=== PATIENT | female | born 1950 | race Hispanic/Latino ===

== ENCOUNTER 2019-05-06 15:58 | Emergency (ER) | payer MEDICARE, SELFPAY ==
[2019-05-06] MEDS ORDERED: HYDROCODONE/ACETAMINOPHEN 10/325 MG TAB ONE (16:23)
[2019-05-06 16:27] LABS: BASOPHILS % (AUTO) 0.4 % (0.0-5.0); EOSINOPHILS % (AUTO) 1.6 % (0.0-8.0); HEMATOCRIT 36.1 % (36-48); LYMPHOCYTES % (AUTO) 26.3 % (21.0-51.0); MEAN CORPUSCULAR HEMOGLOBIN 28.8 pg (27.0-33.0); MEAN CORPUSCULAR HGB CONC 33.2 g/dL (32.0-36.0); MEAN CORPUSCULAR VOLUME 86.8 fL (79-99); NEUTROPHILS % (AUTO) 65.5 % (40.0-77.0); PLATELET COUNT (AUTO) 121 K/uL (130-400); RED BLOOD CELL COUNT(AUTO) 4.16 MIL/uL (4.00-5.50); RED CELL DISTRIBUTION WIDTH 13.1 % (11.0-15.5)
[2019-05-06 16:41] LABS: CREATININE 0.8 mg/dL (0.5-1.5); POTASSIUM 4.3 mmol/L (3.5-5.1)
[2019-05-06 16:46] LABS: BILIRUBIN,TOTAL 0.5 mg/dL (0.2-1.0); TOTAL PROTEIN, SERUM 7.8 g/dL (6.0-8.3)
[2019-05-06 17:20] LABS: APPEARANCE,URINE Clear (CLEAR); BILIRUBIN,URINE Negative (NEGATIVE); COLOR,URINE Yellow (YELLOW); GLUCOSE, URINE (UA) Negative (NEGATIVE); KETONES,URINE Negative (NEGATIVE); LEUKOCYTE ESTERASE ,URINE Trace (NEGATIVE); NITRATE,URINE Negative (NEGATIVE); OCCULT BLOOD,URINE Negative (NEGATIVE); PROTEIN,URINE Negative (NEGATIVE)
[2019-05-06 17:45] LABS: BACTERIA,URINE Rare /HPF (None Seen); RBC,URINE 0-1 /HPF (0-1)
[2019-05-06 17:46] LABS: SQUAMOUS EPITHELIAL CELL,UR 0-2 /HPF (0-2)
== END 2019-05-06 18:45 | disposition home or self-care (01) ==
LOC: EDH 15:58
DX: S40.012A Contusion of left shoulder, initial encounter (principal); S70.02XA Contusion of left hip, initial encounter; I10 Essential (primary) hypertension; E11.9 Type 2 diabetes mellitus without complications; Z79.899 Other long term (current) drug therapy; W18.39XA Other fall on same level, initial encounter; Y93.89 Activity, other specified; Y92.89 Other specified places as the place of occurrence of the external cause; Y99.8 Other external cause status
CPT/HCPCS: 36415; 70450; 71045; 72100; 72125; 73030; 73502; 80053; 81001; 84484; 85025; 93005